=== PATIENT | male | born 1955 | race Caucasian/White ===

== ENCOUNTER 2020-05-10 17:42 | Outpatient (CLI) | payer MEDICARE, SELFPAY ==
[2020-05-10 18:03] LABS: Basophils Percent Auto 0.8 % (0.2-1.2); Eosinophils Absolute Auto 0.1 K/mm3 (0-0.3); Eosinophils Percent Auto 2.6 % (0-4.4); Hematocrit 37.4 % (42.0-52.0); Hemoglobin 12.8 g/dL (14.0-18.0); Immature Granulocyte Absolute 0.04 K/mm3 (0.00-0.031); Immature Granulocyte Percent A 0.8 % (0-0.5); Lymphocytes Absolute Auto 1.96 K/mm3 (0.9-3.2); Lymphocytes Percent Auto 39.8 % (18.3-44.2); Mean Corpuscular HGB Conc 34.2 g/dl (32-36); Mean Corpuscular Hemoglobin 31.1 pg (26-34); Mean Platelet Volume 8.5 fl (7.4-10.4); Monocytes Absolute Auto 0.8 K/mm3 (0.1-0.6); Monocytes Percent Auto 16.6 % (2.6-8.5); Neutrophils Absolute Auto 1.9 K/mm3 (1.3-6.7); Neutrophils Percent Auto 39.4 % (45.5-73.1); Platelet Count Result 202 k/mm3 (150-375); Red Blood Count 4.11 M/mm3 (4.6-6.20); Red Cell Distribution Width 14.4 % (11.5-14.5); White Blood Count 4.9 K/mm3 (4.5-10.0)
[2020-05-10 18:16] LABS: Alanine Aminotransferase 39 U/L (4-50); Albumin Level 3.9 g/dL (3.5-5.1); Alkaline Phosphatase 61 U/L (38-126); Anion Gap 7 mmol/L (8-16); Aspartate Amino Transferase 29 U/L (17-59); Bilirubin,Total 0.3 mg/dL (0.2-1.3); Blood Urea Nitrogen 18 mg/dL (9-20); Calcium 9.8 mg/dL (8.4-10.2); Carbon Dioxide 29 mmol/L (22-30); Chloride 103 mmol/L (98-107); Cholesterol 163 mg/dL (0-200); Estimated Glomerular Filt Rate > 60; Glucose 102 mg/dL (75-110); HDL Direct 48 mg/dL; Potassium 4.2 mmol/L (3.4-5.0); Sodium 139 mmol/L (137-145); Triglycerides 76 mg/dL (<150)
[2020-05-10 18:27] LABS: LDL Cholesterol Direct 90 mg/dL
[2020-05-10 18:49] LABS: Prostate Specific Antigen 0.8 ng/mL (< OR = 4.0)
[2020-05-14 23:21] LABS: Vitamin D 1,25 (OH)2 Total 35 pg/mL (18-72); Vitamin D2 1,25 (OH)2 <8 pg/mL; Vitamin D3 1,25 (OH)2 35 pg/mL
== END 2020-05-10 17:43 | disposition home or self-care (01) ==
LOC: ANHLAB 17:44
PROVIDERS: PCP Emergency Medicine; Visit Provider Emergency Medicine
DX: E78.5 Hyperlipidemia, unspecified (principal); R53.83 Other fatigue; E55.9 Vitamin D deficiency, unspecified; Z12.5 Encounter for screening for malignant neoplasm of prostate
CPT/HCPCS: 36415; 80053; 80061; 82652; 84153; 84443; 85025; G0103

== ENCOUNTER 2020-06-14 17:27 | Outpatient (CLI) | payer MEDICARE, SELFPAY ==
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
== END 2020-06-14 17:28 | disposition home or self-care (01) ==
PROVIDERS: PCP Emergency Medicine; Visit Provider Emergency Medicine
DX: M54.2 Cervicalgia (principal)
CPT/HCPCS: 72040

== ENCOUNTER 2020-07-07 09:47 | Outpatient (CLI) | payer MEDICARE, SELFPAY ==
--- NOTE | ~2020-07-07 | MR_ITS ---
EXAMINATION: MR cervical spine wo con DATE: 07/07/2020 11:51 INDICATION: Neck pain. TECHNIQUE: Magnetic resonance imaging (MRI) of the cervical spine was performed without intravenous c ontrast. Sequences included sagittal T2-weighted FSE, sagittal STIR FSE, sagittal T1-weighted FSE, ax ial MERGE, and axial T2-weighted FSE. COMPARISON: Cervical spine radiographs 06/14/2020 FINDINGS: Motion artifact is noted. There is 9 degrees levocurvature of cervicothoracic spine. Verteb ral body heights are normal. There is a hemangioma in T2 vertebral body. There is mildly decreased di sc height at C3-C4 and C4-C5 and moderately decreased disc height at C5-C6. The spinal cord signal in tensity is normal. The following disc levels are specifically discussed: C2-C3: The disc does not extend beyond the endplate margin. There is mild right uncovertebral joint o steoarthritis. There is no facet joint osteoarthritis. There is no neural foraminal stenosis. There i s no central canal stenosis. C3-C4: There is a right central extrusion. There is severe right and moderate left uncovertebral join t osteoarthritis. There is severe right and mild left facet joint osteoarthritis. There is moderate r ight and mild left neural foraminal stenosis. There is mild central canal stenosis. C4-C5: The disc does not extend beyond the endplate margin. There is mild left uncovertebral joint os teoarthritis. There is severe right and mild left facet joint osteoarthritis. There is mild bilateral neural foraminal stenosis. There is no central canal stenosis. C5-C6: The disc is bulging. There is severe bilateral uncovertebral joint osteoarthritis. There is se emily bilateral facet joint osteoarthritis. There is mild bilateral neural foraminal stenosis. There i s mild central canal stenosis. C6-C7: The disc is bulging. There is mild bilateral uncovertebral joint osteoarthritis. There is yan re right facet joint osteoarthritis. There is mild right neural foraminal stenosis. There is no centr al canal stenosis. C7-T1: The disc does not extend beyond the endplate margin. There is no uncovertebral joint osteoarth ritis. There is severe right and mild left facet joint osteoarthritis. There is mild right neural for aminal stenosis. There is no central canal stenosis. IMPRESSION: 1. Moderate cervical spondylosis. Reviewed, dictated and finalized at location [facility]. OR SALES CONSULTANT
== END 2020-07-07 09:48 ==
PROVIDERS: PCP Emergency Medicine; Visit Provider Nurse Practitioner Family
DX: M47.892 Other spondylosis, cervical region (principal)
CPT/HCPCS: 72141

== ENCOUNTER 2021-03-07 10:45 | Outpatient (CLI) | payer MEDICARE, SELFPAY ==
[2021-03-07 11:44] LABS: Basophils Percent Auto 0.5 % (0.2-1.2); Eosinophils Absolute Auto 0.1 K/mm3 (0-0.3); Eosinophils Percent Auto 1.9 % (0-4.4); Immature Granulocyte Absolute 0.01 K/mm3 (0.00-0.031); Immature Granulocyte Percent A 0.2 % (0-0.5); Lymphocytes Absolute Auto 1.96 K/mm3 (0.9-3.2); Lymphocytes Percent Auto 34.4 % (18.3-44.2); Mean Corpuscular HGB Conc 34.1 g/dl (32-36); Mean Corpuscular Hemoglobin 30.6 pg (26-34); Mean Corpuscular Volume 89.5 fl (80-100); Mean Platelet Volume 8.5 fl (7.4-10.4); Monocytes Absolute Auto 0.6 K/mm3 (0.1-0.6); Monocytes Percent Auto 11.2 % (2.6-8.5); Neutrophils Absolute Auto 2.9 K/mm3 (1.3-6.7); Neutrophils Percent Auto 51.8 % (45.5-73.1); Platelet Count Result 269 k/mm3 (150-375); Red Blood Count 4.58 M/mm3 (4.6-6.20); Red Cell Distribution Width 13.2 % (11.5-14.5); White Blood Count 5.7 K/mm3 (4.5-10.0)
[2021-03-07 12:03] LABS: Alanine Aminotransferase 28 U/L (4-50); Albumin Level 4.6 g/dL (3.5-5.1); Alkaline Phosphatase 90 U/L (38-126); Aspartate Amino Transferase 25 U/L (17-59); Bilirubin,Total 0.6 mg/dL (0.2-1.3); Blood Urea Nitrogen 15 mg/dL (9-20); Calcium 10.1 mg/dL (8.4-10.2); Carbon Dioxide 22 mmol/L (22-30); Cholesterol 216 mg/dL (0-200); Estimated Glomerular Filt Rate > 60; Glucose 99 mg/dL (65-110); HDL Direct 53 mg/dL; Potassium 4.2 mmol/L (3.4-5.0); Sodium 138 mmol/L (137-145); Triglycerides 103 mg/dL (<150)
[2021-03-07 12:07] LABS: LDL Cholesterol Direct 113 mg/dL
[2021-03-07 12:27] LABS: Prostate Specific Antigen 0.9 ng/mL (< OR = 4.0)
[2021-03-07 13:22] LABS: Anion Gap 10 mmol/L (8-16); Chloride 106 mmol/L (98-107)
[2021-03-10 23:46] LABS: Vitamin D 1,25 (OH)2 Total 35 pg/mL (18-72); Vitamin D2 1,25 (OH)2 <8 pg/mL; Vitamin D3 1,25 (OH)2 35 pg/mL
== END 2021-03-07 10:46 | disposition home or self-care (01) ==
LOC: ANHLAB 10:53
PROVIDERS: PCP Emergency Medicine; Visit Provider Internal Medicine
DX: R53.83 Other fatigue (principal); E78.5 Hyperlipidemia, unspecified; E55.9 Vitamin D deficiency, unspecified; Z12.5 Encounter for screening for malignant neoplasm of prostate
CPT/HCPCS: 36415; 80053; 80061; 82652; 84153; 84443; 85025; G0103

== ENCOUNTER 2022-02-07 11:06 | Outpatient (CLI) | payer MEDICARE, SELFPAY ==
[2022-02-07 11:32] LABS: Hematocrit 37.8 % (42.0-52.0); Hemoglobin 13.1 g/dL (14.0-18.0); Mean Corpuscular HGB Conc 34.7 g/dl (32-36); Mean Corpuscular Hemoglobin 31.6 pg (26-34); Mean Corpuscular Volume 91.1 fl (80-100); Mean Platelet Volume 8.5 fl (7.4-10.4); Platelet Count Result 256 k/mm3 (150-375); Red Blood Count 4.15 M/mm3 (4.6-6.20); Red Cell Distribution Width 13.8 % (11.5-14.5); White Blood Count 6.9 K/mm3 (4.5-10.0)
[2022-02-07 11:45] LABS: Alanine Aminotransferase 26 U/L (6-50); Albumin Level 4.4 g/dL (3.5-5.1); Alkaline Phosphatase 75 U/L (38-126); Anion Gap 3 mmol/L (8-16); Aspartate Amino Transferase 25 U/L (17-59); Bilirubin,Total 0.9 mg/dL (0.2-1.3); Blood Urea Nitrogen 13 mg/dL (9-20); Calcium 9.2 mg/dL (8.4-10.2); Carbon Dioxide 29 mmol/L (22-30); Chloride 104 mmol/L (98-107); Cholesterol 196 mg/dL (0-200); Estimated Glomerular Filt Rate > 60; Glucose 107 mg/dL (65-110); HDL Direct 50 mg/dL; Potassium 3.9 mmol/L (3.4-5.0); Sodium 136 mmol/L (137-145); Triglycerides 72 mg/dL (<150)
[2022-02-07 11:55] LABS: LDL Cholesterol Direct 102 mg/dL
[2022-02-07 12:15] LABS: Vitamin D 25 Hydroxy 60.8 ng/mL
[2022-02-08 13:42] LABS: Prostate Specific Antigen 0.9 ng/mL (< OR = 4.0)
== END 2022-02-07 11:07 | disposition home or self-care (01) ==
LOC: ANHLAB 11:11
PROVIDERS: PCP Family Medicine; Visit Provider Nurse Practitioner Family
DX: R56.9 Unspecified convulsions (principal); E55.9 Vitamin D deficiency, unspecified; Z13.220 Encounter for screening for lipoid disorders; Z12.5 Encounter for screening for malignant neoplasm of prostate
CPT/HCPCS: 36415; 80053; 80061; 82306; 84153; 85027; G0103

== ENCOUNTER 2023-01-09 22:09 | Emergency (ER) | payer OTHER, MEDICARE, MEDICAID, SELFPAY ==
--- NOTE | ~2023-01-09 | XR_ITS ---
Right Hand Technique: PA, oblique, and lateral views were obtained. Clinical History: Pain Findings: No acute fracture or dislocation is seen. 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 Osseous alignment is anatomic. Moderate degenerative change noted at th e third PIP joint. Soft tissues are unremarkable. Impression: No acute abnormality. 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 Moderate degenerative change at the third PIP joint. Reviewed, dictated and finalized at [facility]. Impression: No acute abnormality. Prior presumed amputation of the distal phalanges of the second and third digit s. Moderate degenerative change at the third PIP joint.
--- NOTE | ~2023-01-09 | CT_ITS ---
EXAMINATION: CT cervical spine wo con DATE: 01/09/2023 22:54 INDICATION: Neck pain TECHNIQUE: Computed tomography (CT) of the cervical spine was performed without intravenous contrast. The dose-length product (DLP) was 197.40 mGy-cm. Automated exposure control and iterative reconstruc tion technique were employed. COMPARISON: MRI, 07/07/2020 FINDINGS: There are 2 mm of anterolisthesis of C4 on C5. The vertebral body heights are maintained. T here is moderate loss of intervertebral disc space height at C5-6 and mild loss of intervertebral dis c space height throughout the remainder of the cervical spine. The odontoid process is intact. The pr evertebral soft tissues are normal. There is multilevel mild to moderate facet and uncovertebral join t osteoarthritis. IMPRESSION: 1. Mild to moderate cervical spondylosis without acute findings. Reviewed, dictated and finalized at location [facility].
--- NOTE | ~2023-01-09 | XR_ITS ---
Left wrist Technique: PA, oblique, lateral, and ulnar deviation views were obtained. Clinical History: Pain Findings: No acute fracture or dislocation is seen. Osseous alignment is anatomic. Joint spaces are p reserved. Soft tissues are unremarkable. Impression: No definite fracture identified. Evaluation scaphoid somewhat suboptimal. If there is persistent conc gordon for scaphoid fracture, then consider follow-up cross-sectional imaging. Reviewed, dictated and finalized at location . Impression: No definite fracture identified. Evaluation scaphoid somewhat suboptimal. If th ere is persistent concern for scaphoid fracture, then consider follow-up cross- sectional imaging.
--- NOTE | ~2023-01-09 | XR_ITS ---
Portable chest x-ray Comparison: 05/08/2012 Clinical History: Rib pain Findings: Suggestion of possible 13 mm left basilar pulmonary nodule versus possibly nipple shadow. Right lung clear. Cardiomediastinal silhouette is stable. Questionable nondisplaced fracture at the posterior left ninth rib. Impression: Possible nondisplaced fracture posterior left ninth rib. Correlate with point tenderness. Questionable 13 mm left basilar pulmonary nodule versus nipple shadow. Consider repeat exam with nipp le markers or CT to further evaluate. Reviewed, dictated and finalized at [facility]. Impression: Possible nondisplaced fracture posterior left ninth rib. Correlate with point t enderness. Questionable 13 mm left basilar pulmonary nodule versus nipple shadow. Consider repeat exam with nipple markers or CT to further evaluate.
--- NOTE | ~2023-01-09 | CT_ITS ---
EXAMINATION: CT brain wo con INDICATION: Headache COMPARISON: 11/20/2012 TECHNIQUE: Standard unenhanced head CT. The dose-length product (DLP) was 681.00 mGy-cm. The mA was a djusted according to patient size. Iterative reconstruction technique was employed. FINDINGS: There are changes of right temporal craniotomy and partial right temporal lobectomy. There is no intracranial hemorrhage, acute infarction, or abnormal mass lesion. The ventricles are normal. There is no abnormal mass effect or midline shift. The aguirre-white matter differentiation is normal. T he basal cisterns are patent. The orbits are normal. The paranasal sinuses, mastoids and calvarium ar e normal. IMPRESSION: 1. Chronic changes of partial right temporal lobectomy without acute intracranial abnormality. Reviewed, dictated and finalized at location F. IMPRESSION: 1. Chronic changes of partial right temporal lobectomy without acute intracrani al abnormality.
[2023-01-09 22:11] VITALS: BP 126/82; PULSE 74; RESP 16; O2SAT 98
--- NOTE | 2023-01-09 22:23 | ECG_ITS ---
Measurements Intervals [place] Rate: 66 P: -15 FL: 133 QRS: 105 QRSD: 93 T: 6 QT: 381 QTc: 402 Interpretive Statements SINUS RHYTHM RIGHT AXIS DEVIATION [QRS AXIS > 100] INCOMPLETE RIGHT BUNDLE BRANCH BLOCK [90+ ms QRS DURATION, TERMINAL R IN V1/V2, 40+ ms S IN I/aVL/V4/V5/V6] ABNORMAL ECG NO PREVIOUS ECG AVAILABLE FOR COMPARISON Electronically Signed On 01-10-2023 12:41:34 CDT by Rizwan Camacho M.D.
[2023-01-09] MEDS: HYDROcodone/acetaminophen (*CRX) 5-325 MG TABLET 1 TAB PO (23:17)
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
[2023-01-10] MEDS: TETANUS,DIPHTHERIA,AC PERTUSSIS ADULT (0.5 ML) BOOSTRIX IM (00:30)
[2023-01-10 01:27] VITALS: BP 128/74; PULSE 55; RESP 20; O2SAT 99
--- NOTE | 2023-01-10 01:27 | PC.NURSE ---
Aluminum finger splint applied to right middle finger. Wrapped with coban.
== END 2023-01-10 01:28 | disposition left against medical advice (07) ==
PROVIDERS: Emergency Provider Emergency Medicine; PCP Family Medicine
DX: S69.91XA Unspecified injury of right wrist, hand and finger(s), initial encounter (principal); S19.9XXA Unspecified injury of neck, initial encounter; Z23 Encounter for immunization; I69.954 Hemiplegia and hemiparesis following unspecified cerebrovascular disease affecting left non-dominant side; K21.9 Gastro-esophageal reflux disease without esophagitis; D23.9 Other benign neoplasm of skin, unspecified; M21.372 Foot drop, left foot; Z87.820 Personal history of traumatic brain injury; Z87.891 Personal history of nicotine dependence; Z89.021 Acquired absence of right finger(s); Z79.82 Long term (current) use of aspirin; V43.52XA Car driver injured in collision with other type car in traffic accident, initial encounter
CPT/HCPCS: 70450; 71045; 72125; 73110; 73130; 90471; 90715; 93005; 99284; A9270

== ENCOUNTER 2023-02-10 09:45 | Outpatient (RCR) | payer MEDICARE, MEDICAID, SELFPAY ==
--- NOTE | 2023-01-27 10:32 | OPREHPOC ---
Outpatient Therapy Plan of Care This is a Multidisciplinary Plan of Care that may contain components documented by all disciplines (PT, OT, and ST.) PT Problem 1 PT Problem #1 Knowledge Deficit PT Goal 1 Goal Independent with HEP Target Visit 4 PT Problem 2 PT Problem #2 Impaired Strength PT Goal 1 Goal improve L hamstring to 3/5 strength Target Visit 4 PT Goal 2 Goal Increase L hip to grossly 4/5 Target Visit 4
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
--- NOTE | 2023-02-24 09:10 | PCPTNOTE ---
Patient called & cancelled scheduled appointment this date due to not feeling well
--- NOTE | 2023-03-18 10:13 | PCPTNOTE ---
Admitting Provider: Attending Provider: Aníbal Kwong MD Patient:Wilbert Ponce Date of :1955 Patient has not returned for any further treatments since 02/10/2023, therefore he will be discharged at this time. Patient?s initial visit was on 01/27/2023 09:15 and he had a total of ____3____ visits, with 2 cancelations and no attempt after phone calls to schedule more appointment. The goals have been not met. Thank you for referring this patient to [facility]. Please review, sign, date and return this discharge summary [place]. I have been updated about the patient's current status and I agree with discharge from the above service at this time. Referring Physician Date
== END 2023-03-21 09:53 | disposition home or self-care (01) ==
LOC: ANHPT 09:45
PROVIDERS: PCP Family Medicine; Visit Provider Family Medicine
DX: R29.898 Other symptoms and signs involving the musculoskeletal system (principal)
CPT/HCPCS: 97110; 97161; 97530

== ENCOUNTER 2023-02-26 10:55 | Emergency (ER) | payer MEDICARE, MEDICAID, SELFPAY ==
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
[2023-02-26 10:58] VITALS: BP 125/66; PULSE 80; RESP 16; TEMP 36.4; O2SAT 99
[2023-02-26] MEDS: SODIUM CHLORIDE 0.9% IV 1,000 ML 999 ML IV CONT (13:05)
[2023-02-26] MEDS: ACETAMINOPHEN 500 MG TABLET 1000 MG PO (13:05)
[2023-02-26] MEDS: PROCHLORPERAZINE EDISYLATE 10 MG/2 ML VIAL IV PUSH (13:06)
[2023-02-26] MEDS: diphenhydrAMINE HCl INJ 50 MG/ML VIAL 25 MG IV PUSH (13:06)
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
[2023-02-26 14:43] VITALS: BP 116/77; PULSE 77; RESP 14; O2SAT 100
== END 2023-02-26 14:45 | disposition home or self-care (01) ==
PROVIDERS: Emergency Provider Preventive Medicine Aerospace Medicine; PCP Family Medicine
DX: G44.309 Post-traumatic headache, unspecified, not intractable (principal); F07.81 Postconcussional syndrome; I69.954 Hemiplegia and hemiparesis following unspecified cerebrovascular disease affecting left non-dominant side; K21.9 Gastro-esophageal reflux disease without esophagitis; Z87.891 Personal history of nicotine dependence; Z79.82 Long term (current) use of aspirin
CPT/HCPCS: 70450; 96361; 96374; 96375; 99284; A9270; J0780; J1200; J7030

== ENCOUNTER 2023-03-12 10:36 | Outpatient (CLI) | payer MEDICARE, MEDICAID, SELFPAY ==
[2023-03-12 11:16] LABS: Hematocrit 34.9 % (42.0-52.0); Hemoglobin 11.7 g/dL (14.0-18.0); Mean Corpuscular HGB Conc 33.5 g/dl (32-36); Mean Corpuscular Volume 92.6 fl (80-100); Mean Platelet Volume 8.7 fl (7.4-10.4); Platelet Count Result 272 k/mm3 (150-375); Red Blood Count 3.77 M/mm3 (4.6-6.20); Red Cell Distribution Width 14.3 % (11.5-14.5)
[2023-03-12 11:25] LABS: Alanine Aminotransferase 32 U/L (6-50); Albumin Level 4.2 g/dL (3.5-5.1); Alkaline Phosphatase 84 U/L (38-126); Anion Gap 4 mmol/L (8-16); Aspartate Amino Transferase 33 U/L (17-59); Bilirubin,Total 0.4 mg/dL (0.2-1.3); Blood Urea Nitrogen 17 mg/dL (9-20); Calcium 9.7 mg/dL (8.4-10.2); Carbon Dioxide 31 mmol/L (22-30); Chloride 101 mmol/L (98-107); Estimated Glomerular Filt Rate > 60; Glucose 122 mg/dL (65-110); Potassium 4.1 mmol/L (3.4-5.0); Sodium 136 mmol/L (137-145)
[2023-03-12 11:49] LABS: Iron 100 ug/dL (49-181)
[2023-03-12 11:56] LABS: Prostate Specific Antigen 0.8 ng/mL (< OR = 4.0); Thyroid Stimulating Hormone 0.807 uIU/mL (0.465-4.680)
[2023-03-12 12:16] LABS: Vitamin B12 > 1000.0 pg/mL (239-931)
[2023-03-12 15:06] LABS: Valproic Acid < 10.0 ug/mL (50-120)
[2023-03-12 15:12] LABS: Percent Iron Saturation 32 % (20-50)
[2023-03-12 15:15] LABS: Vitamin D 25 Hydroxy 74.9 ng/mL
== END 2023-03-12 10:37 | disposition home or self-care (01) ==
PROVIDERS: PCP Family Medicine; Visit Provider Family Medicine
DX: E87.1 Hypo-osmolality and hyponatremia (principal); D64.9 Anemia, unspecified; F41.9 Anxiety disorder, unspecified; R56.9 Unspecified convulsions; E55.9 Vitamin D deficiency, unspecified; Z12.5 Encounter for screening for malignant neoplasm of prostate
CPT/HCPCS: 36415; 80048; 80076; 80164; 82306; 82607; 83540; 83550; 84153; 84443; 85027; G0103

== ENCOUNTER 2023-03-27 08:02 | Outpatient (CLI) | payer MEDICARE, MEDICAID, SELFPAY ==
--- NOTE | ~2023-03-27 | MR_ITS ---
EXAMINATION: MR brain/brain stem wo con DATE: 03/27/2023 08:55 INDICATION: Headache, unspecified. TECHNIQUE: Magnetic resonance imaging (MRI) of the brain and brainstem was performed without intraven ous contrast. COMPARISON: Brain MRI 04/18/2017, head CT 02/26/2023 FINDINGS: There is chronic encephalomalacia involving right temporal lobe, the right basal ganglia, p osterior limb right internal capsule, and the right subinsular white matter. There are changes of ove rlying craniotomy. There are scattered areas of nonspecific increased T2-weighted signal intensity in the cerebral white matter, which is within normal limits for the patient's age. There is ex vacuo di latation of right lateral ventricle. The orbits are normal. The paranasal sinuses are clear. The mast oid air cells are normal. IMPRESSION: 1. Chronic encephalomalacia involving the right temporal lobe, right basal ganglia, posterior limb ri ght internal capsule, and the right subinsular white matter. Reviewed, dictated and finalized at location A. IMPRESSION: 1. Chronic encephalomalacia involving the right temporal lobe, right basal gang subhash, posterior limb right internal capsule, and the right subinsular white crystal er.
== END 2023-03-27 08:03 | disposition home or self-care (01) ==
LOC: ANHIMG 08:06
PROVIDERS: PCP Family Medicine; Visit Provider Family Medicine
DX: G44.311 Acute post-traumatic headache, intractable (principal); R56.9 Unspecified convulsions; Z87.820 Personal history of traumatic brain injury; Z87.898 Personal history of other specified conditions
CPT/HCPCS: 70551

== ENCOUNTER 2023-10-23 15:47 | Outpatient (CLI) | payer MEDICARE, MEDICAID, SELFPAY ==
--- NOTE | ~2023-10-23 | MR_ITS ---
MRI of the cervical spine Clinical History: Radiculopathy Technique: Axial T2-weighted and gradient images, and sagittal T1-weighted, T2-weighted, and STIR laurie ges were acquired. COMPARISON: 07/07/2020 Findings: There is no fracture of cervical spine. There is minimal grade 1 anterolisthesis of C4 over C5. No suspicious bone marrow signal abnormality seen. At C2-C3, there is no disc bulge or herniation. No spinal canal stenosis, cord compression, or left n eural foraminal narrowing. Possible minimal right neural foraminal narrowing. At C3-C4, there is mild disc osteophyte complex. No jace canal stenosis or cord compression. There i s right neural foraminal narrowing with right facet arthropathy. Left neural foramen preserved. At C4-C5, there is minimal disc osteophyte complex, with minimal canal stenosis. No jace cord compre ssion. There is bilateral facet arthropathy with bilateral neural foraminal narrowing. At C5-C6, there is moderate to advanced degenerative disc narrowing. Mild disc osteophyte complex is present, with associated mild canal stenosis without jace cord compression. There is bilateral neura l foraminal narrowing, right worse than left, with bilateral facet arthropathy. At C6-C7, there is minimal disc osteophyte complex. No jace spinal canal stenosis or cord compressio n. Neural foramina are probably preserved. No abnormal signal seen in the spinal cord. Paravertebral soft tissues are unremarkable. Impression: Mild degenerative spondylosis overall, as detailed above. Minimal grade 1 anterolisthesis of C4 over C5. Reviewed, dictated and finalized at [facility]. Impression: Mild degenerative spondylosis overall, as detailed above. Minimal grade 1 anterolisthesis of C4 over C5.
== END 2023-10-23 15:48 | disposition home or self-care (01) ==
LOC: ANHIMG 15:55
PROVIDERS: PCP Family Medicine; Visit Provider Nurse Practitioner Family
DX: M47.22 Other spondylosis with radiculopathy, cervical region (principal)
CPT/HCPCS: 72141

== ENCOUNTER 2023-12-01 13:44 | Outpatient (CLI) | payer MEDICARE, MEDICAID, SELFPAY ==
[2023-12-01 14:44] LABS: Hematocrit 39.6 % (42.0-52.0); Hemoglobin 13.2 g/dL (14.0-18.0); Mean Corpuscular HGB Conc 33.3 g/dl (32-36); Mean Corpuscular Hemoglobin 31.4 pg (26-34); Mean Corpuscular Volume 94.3 fl (80-100); Platelet Count Result 250 k/mm3 (150-375); Red Cell Distribution Width 13.5 % (11.5-14.5); White Blood Count 5.8 K/mm3 (4.5-10.0)
[2023-12-01 15:24] LABS: Iron 65 ug/dL (49-181)
[2023-12-01 15:27] LABS: Alanine Aminotransferase 51 U/L (6-50); Albumin Level 4.6 g/dL (3.5-5.1); Alkaline Phosphatase 70 U/L (38-126); Anion Gap 5 mmol/L (4-12); Aspartate Amino Transferase 54 U/L (17-59); Bilirubin,Total 0.4 mg/dL (0.2-1.3); Blood Urea Nitrogen 23 mg/dL (9-20); Carbon Dioxide 28 mmol/L (22-30); Chloride 104 mmol/L (98-107); Estimated Glomerular Filt Rate > 60; Glucose 99 mg/dL (65-110); Potassium 4.1 mmol/L (3.4-5.0); Sodium 137 mmol/L (137-145)
[2023-12-01 15:33] LABS: Percent Iron Saturation 20 % (20-50)
[2023-12-01 15:34] LABS: Free T4 Free Thyroxine 0.88 ng/mL (0.78-2.19)
[2023-12-05 15:53] LABS: Testosterone Free 56.5 pg/mL (35.0-155.0); Testosterone Total 628 ng/dL (250-1100)
== END 2023-12-01 13:45 | disposition home or self-care (01) ==
PROVIDERS: PCP Family Medicine; Visit Provider Family Medicine
DX: D64.9 Anemia, unspecified (principal); E55.9 Vitamin D deficiency, unspecified; E87.1 Hypo-osmolality and hyponatremia; F32.A Depression, unspecified; R68.82 Decreased libido; F41.9 Anxiety disorder, unspecified
CPT/HCPCS: 36415; 80053; 82306; 82728; 83540; 83550; 84402; 84403; 84439; 84443; 85027

== ENCOUNTER 2024-02-16 13:41 | Outpatient (CLI) | payer MEDICARE, MEDICAID, SELFPAY ==
--- NOTE | ~2024-02-16 | XR_ITS ---
Left wrist Technique: PA, oblique, lateral, and ulnar deviation views were obtained. Clinical History: Status post fall Findings: Exam is suboptimal due to patient contracture with superposition of osseous structures at t he wrist. There is an acute, oblique, mildly angulated fracture the distal ulnar metadiaphyseal regio n. No other fracture or dislocation clearly identified. Soft tissues are unremarkable. Impression: Acute, oblique, mildly displaced fracture the distal ulna, as above. Evaluation of the carpal bones is limited due to contracture and suboptimal positioning. Reviewed, dictated and finalized at location . Impression: Acute, oblique, mildly displaced fracture the distal ulna, as above. Evaluation of the carpal bones is limited due to contracture and suboptimal pos itioning.
--- NOTE | ~2024-02-16 | XR_ITS ---
Left elbow Technique: AP, oblique, and lateral views were obtained. Clinical History: Pain Findings: No acute fracture or dislocation is seen. Osseous alignment appears grossly anatomic. Joint spaces are preserved. There is no displacement of the fat pads, and soft tissues are unremarkable. Impression: No significant abnormality seen. Exam slightly suboptimal due to limitations in patient positioning. Reviewed, dictated and finalized at [facility]. Impression: No significant abnormality seen. Exam slightly suboptimal due to limitations in patient positioning.
== END 2024-02-16 13:42 | disposition home or self-care (01) ==
PROVIDERS: PCP Family Medicine; Visit Provider Family Medicine
DX: S52.232A Displaced oblique fracture of shaft of left ulna, initial encounter for closed fracture (principal); W19.XXXA Unspecified fall, initial encounter
CPT/HCPCS: 73080; 73110

== ENCOUNTER 2025-01-05 08:07 | Outpatient (CLI) | payer MEDICARE, SELFPAY ==
--- NOTE | ~2025-01-05 | US_ITS ---
US abdomen complete EXAMINATION: US Abdomen Complete INDICATION: Gastroesophageal reflux PROCEDURE: Realtime High Resolution abdomen ultrasound. COMPARISON: No prior studies for comparison FINDINGS: Gallbladder is contracted limiting evaluation for gallbladder wall thickening. No definite stones identified. Common bile duct measures 3 mm. Liver echotexture within normal limits without focal mass. Pancreas within normal limits. Pancreati c tail is obscured by bowel gas. Spleen is unremarkeable. Renal echotexture is within normal limits bilaterally. No definite stones, hydronephrosis or solid mass. There is a possible small accessory sp lenule. Right kidney measures 11.1 cm. Left kidney measures 10.9 cm. Visualized aspects of the aorta and IVC are within normal limits. Portal vein is patent. No sonograph ic Bledsoe's sign indicated by the technologist. IMPRESSION: 1: Unremarkable abdominal ultrasound. Reviewed, dictated and finalized at location A.
== END 2025-01-05 08:08 | disposition home or self-care (01) ==
PROVIDERS: PCP Family Medicine; Visit Provider Nurse Practitioner Family
DX: K21.9 Gastro-esophageal reflux disease without esophagitis (principal)
CPT/HCPCS: 76700

== ENCOUNTER 2025-01-25 01:16 | Day surgery (SDC) | payer MEDICARE, SELFPAY ==
[2025-01-13 09:27] VITALS: BMI 21.4
[2025-01-25 09:05] VITALS: BP 105/65; PULSE 72; RESP 18; TEMP 36.3; O2SAT 96; BMI 21.4
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
[2025-01-25] MEDS: LACTATED RINGERS 1,000 ML 150 ML IV CONT (09:15)
[2025-01-25] MEDS: SIMETHICONE ORAL SUSPENSION 20 MG/0.3 ML 30 ML BOTTLE 1.8 ML PO (09:15)
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
--- NOTE | 2025-01-25 10:35 | S_PTH ---
PATIENT: Wilbert Ponce LOC: [facility] U#:[id number] AGE/SX: 69/M ROOM: RE01/25/[address]: Robert Srinivasan MD : 1955 BED: DIS: 01/25/2025 SPEC #: [id number] RECD: 01/25/25 10:52 STATUS: [facility] REQ #: [id number] NAA: 01/25/25 10:[address]: Robert Srinivasan DEPT: [facility] RECD BY: Jr Tavarez ENTERED: 01/25/25 10:53 SP TYPE: Surgical OTHR DR: Aníbal Kwong MD Tissues: A - Gastric Biopsy B - Gastric Biopsy Procedures: Hematoxylin and Eosin Stain Gross and Microscopic Level 4
[2025-01-25 10:38] VITALS: BP 90/60; PULSE 61; RESP 16; O2SAT 99
[2025-01-25 10:48] VITALS: BP 91/59; PULSE 58; RESP 14; O2SAT 98
[2025-01-25 10:58] VITALS: BP 124/74; PULSE 56; RESP 16; O2SAT 98
== END 2025-01-25 11:02 | disposition home or self-care (01) ==
PROVIDERS: PCP Family Medicine; Referring Provider Nurse Practitioner Family; Visit Provider Internal Medicine Gastroenterology
PROC: 0DJ08ZZ Inspection of Upper Intestinal Tract, Via Natural or Artificial Opening Endoscopic (ICD-10-PCS; CPT 43239; principal; 2025-01-25 10:15)
DX: K21.9 Gastro-esophageal reflux disease without esophagitis (principal); K31.89 Other diseases of stomach and duodenum; F32.A Depression, unspecified; I69.354 Hemiplegia and hemiparesis following cerebral infarction affecting left non-dominant side; R56.9 Unspecified convulsions; F12.90 Cannabis use, unspecified, uncomplicated; Z98.890 Other specified postprocedural states; Z87.891 Personal history of nicotine dependence; Z80.0 Family history of malignant neoplasm of digestive organs; Z82.49 Family history of ischemic heart disease and other diseases of the circulatory system
CPT/HCPCS: 43239; 88305; J2003; J2704; J7120

== ENCOUNTER 2025-03-03 09:49 | Outpatient (CLI) | payer MEDICARE, SELFPAY ==
--- OUTSIDE RECORDS SUMMARY | 2025-03-03 10:23 | XMS_ITS | Clinical Summary ---
Author Organization [facility] Address Formerly [facility] [place] [address] Care Team Providers Care French Binding Folder Name Role Phone Aníbal Kwong MD Primary Care Provider [phone] Allergies No known active allergies Medications Cholecalciferol (VITAMIN D) 50 MCG (1999) Tab Take 1 tablet by mouth daily. 1 Active divalproex EC 500 MG tablet Take 500 mg by mouth 2 (two) times daily. 1 Active pantoprazole EC 40 MG tablet 1 Active rOPINIRole 2 MG tablet Take 2 mg by mouth 3 (three) times daily. 1 Active HYDROcodone-tessa taminophen 5-325 MG tablet hydrocodone 5 mg-acetaminophen 325 mg tablet Active dicyclomine (BENTYL) 10 MG capsuleIndicati ons:Irritable bowel syndrome with diarrhea take 1 capsule by mouth three times daily 90 capsule 4 Active Social History Tobacco Use Types Packs/Day Years Used Date Smoking Tobacco: Former Smokeless Tobacco: Never Comments:quit 15 years ago Alcohol Use Standard Drinks/Week Comments Yes 0 (1 standard drink = 0.6 oz pur e alcohol) socially Sex and Gender Information Value Date Recorded Sex Assigned at Not on file Legal Sex Male 8:09 PM CDT Gender Identity Not on file Sexual Orientation Not on file Last Filed Vital Signs Vital Sign Reading Time Taken Comments Blood Pressure 134/100 08/16/2021 12:10 PM [employer] [employer]TER Pulse 77 08/16/2021 12:10 PM [employer] Temperature 36.6 C (97.9 F) 08/16/2021 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 Respiratory Rate 18 08/16/2021 12:10 PM [employer]IFTER Oxygen Saturation 99% 08/16/2021 12:10 PM ST[employer]IFTER Inhaled Oxygen Concentration - - Weight 64.4 kg (142 lb) 04/25/2021 10:27 AM CDT Height 172.7 cm (5' 8) 04/25/2021 10:27 AM CDT Body Mass Index 21.59 04/25/2021 10:27 AM CDT Plan of Treatment Health Maintenance Due Date Last Done Comments Hepatitis C 1975 DTaP, Tdap and Td Vaccines ( 1 - Tdap) 1976 Pneumococcal Vaccine: 50+ Years (1 of 1 - PCV) 2007 Zoster Vaccines (1 of 2) 2007 Annual Medicare Wellness Visit 2022 COVID-19 Vaccine (3 - 2023-2 5 season) 2024 11/14/2020, 10/16/2020 PHQ-2 (Physician [place]) 08/04/2024 Colorectal Cancer Screening Colonoscopy (10 Years) 04/25/2031 04/25/2021 RSV Immunization or 60+ Years (1 - 1-dose 75+ series) 2032 Meningococcal B Vaccine Aged Out No l onger eligible based on patient's age to complete this topic Meningococcal Vaccine Aged Out No ave isabel eligible based on patient's age to complete this topic RSV Immunizations Under 20 Months Aged Out No longer eligible b ased on patient's age to complete this topic Insurance [place] [address] [employer] Care Teams French Binding Folder Relationship Specialty Start Date End Date Aníbal Kwong MD [address] [place] [address] PCP - General FAMILY PRACTICE 09/13/21
[2025-03-03 11:08] LABS: Hematocrit 40.0 % (42.0-52.0); Hemoglobin 13.3 g/dL (14.0-18.0); Mean Corpuscular HGB Conc 33.3 g/dl (32-36); Mean Corpuscular Hemoglobin 30.6 pg (26-34); Mean Corpuscular Volume 92.2 fl (80-100); Platelet Count Result 262 k/mm3 (150-375); Red Blood Count 4.34 M/mm3 (4.6-6.20); White Blood Count 5.4 K/mm3 (4.5-10.0)
[2025-03-03 11:32] LABS: Alanine Aminotransferase 24 U/L (6-50); Albumin Level 4.2 g/dL (3.5-5.1); Alkaline Phosphatase 93 U/L (38-126); Anion Gap 8 mmol/L (4-12); Aspartate Amino Transferase 31 U/L (17-59); Bilirubin,Total 0.3 mg/dL (0.2-1.3); Blood Urea Nitrogen 18 mg/dL (9-20); Calcium 9.3 mg/dL (8.4-10.2); Carbon Dioxide 24 mmol/L (22-30); Chloride 105 mmol/L (98-107); Estimated Glomerular Filt Rate > 60; Glucose 112 mg/dL (65-110); Potassium 4.4 mmol/L (3.4-5.0); Sodium 137 mmol/L (137-145); Total Protein 7.5 g/dL (6.3-8.2)
[2025-03-03 11:33] LABS: Iron 73 ug/dL (49-181)
[2025-03-03 11:42] LABS: Percent Iron Saturation 22 % (20-50)
[2025-03-03 12:08] LABS: Prostate Specific Antigen 1.9 ng/mL (< OR = 4.0)
[2025-03-03 12:22] LABS: Ferritin 73.00 ng/mL (11.1-264)
[2025-03-03 12:27] LABS: Vitamin B12 883.0 pg/mL (239-931)
== END 2025-03-03 09:50 | disposition home or self-care (01) ==
PROVIDERS: PCP Family Medicine; Visit Provider Family Medicine
DX: D64.9 Anemia, unspecified (principal); E87.1 Hypo-osmolality and hyponatremia; R56.9 Unspecified convulsions; E55.9 Vitamin D deficiency, unspecified; Z12.5 Encounter for screening for malignant neoplasm of prostate
CPT/HCPCS: 36415; 80048; 80076; 80164; 82306; 82607; 82728; 83540; 83550; 84153; 85027; G0103